=== PATIENT | female | born 1990 | race Caucasian/White ===

== ENCOUNTER 2017-08-08 23:58 | Emergency (ER) | payer MEDICAID ==
[2017-08-09 00:50] VITALS: BP 117/67
[2017-08-09 01:37] LABS: BILIRUBIN,URINE NEGATIVE (NEGATIVE); COLOR,URINE YELLOW; GLUCOSE, URINE NEGATIVE (NEGATIVE); KETONES,URINE NEGATIVE (NEGATIVE); LEUKOCYTE ESTERASE,URINE TRACE (NEGATIVE); NITRITE,URINE NEGATIVE (NEGATIVE); PROTEIN,URINE NEGATIVE (NEGATIVE); URINE SPECIFIC GRAVITY 1.024; UROBILINOGEN,URINE NEGATIVE mg/dL (<2.0)
[2017-08-09 01:39] LABS: APPEARANCE,URINE HAZY
== END 2017-08-09 04:04 | disposition left against medical advice (07) ==
LOC: ER 23:58
DX: Z53.21 Procedure and treatment not carried out due to patient leaving prior to being seen by health care provider (principal)
CPT/HCPCS: 81001

== ENCOUNTER 2018-01-21 23:08 | Inpatient (IN) | payer MEDICAID ==
[2018-01-21] MEDS ORDERED: RINGERS SOLUTION,LACTATED 1,000 ML IV ONE (23:51)
[2018-01-21] MEDS ORDERED: PENICILLIN G-K 5 MILLION UNIT VIAL ONE (23:51)
[2018-01-21] MEDS ORDERED: PENICILLIN G POTASSIUM 5,000,000 UNIT in DEXTROSE 5%-WATER 100 ML IV ONE (23:51)
[2018-01-22 00:11] LABS: APPEARANCE,URINE CLEAR; BILIRUBIN,URINE NEGATIVE (NEGATIVE); COLOR,URINE STRAW; GLUCOSE, URINE NEGATIVE (NEGATIVE); KETONES,URINE TRACE mg/dL (NEGATIVE); LEUKOCYTE ESTERASE,URINE NEGATIVE (NEGATIVE); NITRITE,URINE NEGATIVE (NEGATIVE); PROTEIN,URINE NEGATIVE (NEGATIVE); URINE SPECIFIC GRAVITY 1.006; UROBILINOGEN,URINE NEGATIVE mg/dL (<2.0)
[2018-01-22] MEDS ORDERED: OXYTOCIN/NORMAL SALINE 20 UNIT/1,000 ML RTUINJ ONE (00:11)
[2018-01-22] MEDS ORDERED: LIDOCAINE 1% INJ-PF (10 MG/ML) 30 ML SDV ONE (00:11)
[2018-01-22] MEDS ORDERED: MISOPROSTOL 0.2 MG TABLET ONE (00:11)
[2018-01-22 00:29] LABS: URINE AMPHETAMINES SCREEN NEGATIVE; URINE BARBITURATES SCREEN NEGATIVE; URINE BENZODIAZEPINES SCREEN NEGATIVE; URINE COCAINE SCREEN NEGATIVE; URINE MARIJUANA (THC) SCREEN NEGATIVE; URINE METHADONE SCREEN NEGATIVE; URINE PHENCYCLIDINE SCREEN NEGATIVE
[2018-01-22 00:30] LABS: ABSOLUTE BASOPHILS # (AUTO) 0.1 10^3/uL (0.0-0.2); ABSOLUTE EOSINOPHILS # (AUTO) 0.2 10^3/uL (0.0-0.6); ABSOLUTE LYMPHOCYTES (AUTO) 3.3 10^3/uL (0.5-4.7); ABSOLUTE MONOCYTES (AUTO) 0.9 10^3/uL (0.1-1.4); ABSOLUTE NEUT (AUTO) 9.2 10^3/uL (1.7-8.2); BASOPHILS % (AUTO) 0.4 % (0-2); EOSINOPHILS % (AUTO) 1.8 % (0-6); HEMATOCRIT 30.1 % (36.0-47.0); HEMOGLOBIN 10.1 g/dL (12.0-15.5); LYMPHOCYTES % (AUTO) 24.2 % (13-45); MEAN CORPUSCULAR HEMOGLOBIN 28.4 pg (27.0-33.4); MEAN CORPUSCULAR HGB CONC 33.7 g/dL (32.0-36.0); MEAN CORPUSCULAR VOLUME 84 fl (80-97); MONOCYTES % (AUTO) 6.6 % (3-13); PLATELET COUNT 391 10^3/uL (150-450); RED BLOOD COUNT 3.57 10^6/uL (3.72-5.28); TOTAL CELLS COUNTED % (AUTO) 100 %; WHITE BLOOD COUNT 13.8 10^3/uL (4.0-10.5)
--- NOTE | 2018-01-22 00:38 | Admission Physical ---
Datetime Report Generated by CPN: 01/22/2018 00:38 CURRENT ADMISSION Chief Complaint: Uterine Contractions; Suspected Ruptured Membranes Chief Complaint Other: contractions starting today. possible rupture of membranes since yesterday Indication for Induction: Not Applicable Admit Impression : , Intrauterine ; Active Labor; Ruptured Membranes Admit Plan: Admit to Unit; Initiate Labor Protocol Admit Plan- Other: gbs unknown anticipated - precipitous labor ALLERGIES Medication Allergies: No Medication Allergies: No Known Allergies (08/09/2017) Latex: No Latex Allergies Food Allergies: denies Environmental Allergies: denies OBSTETRICAL HISTORY EDC: 02/24/2018 00:00 : 2 Para: 1 Term: 1 : 0 SAB: 0 IAB: 0 Livin Gestational Diabetes: No Rh Sensitization: No Incompetent Cervix: No VIN: No Infertility: No ART Treatment: No Uterine Anomaly: No IUGR: Yes Hx Previous C/S: No Macrosomia: No Hx Loss/Stillborn: No PIH: No Hx : No Placenta Previa/Abruption: No Depression/PP Depression: Yes PTL/PROM: Yes Post Hemorrhage: No Current Procedures: Ultrasound Obstetrical History Comments: g1 - 02/27/14 at 38.1 IUGR <7% Female 5lb 2 oz g2 - SEE RECORDS Alcohol: No Marijuana : No Cocaine: No Other Illicit Drugs: No Cigarettes: Current Everyday Smoker. 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 Surgery: No Heart Disease: No Hosp/Surgery: Yes Autoimmune Disorder: No Anesthetic Complications: No Kidney Disease: No Abnormal Pap Smear: No Neuro/Epilepsy: No Psychiatric Disorders: No Other Medical Diseases: No Hepatitis/Liver Disease: No Significant Family History: No Varicosities/Phlebitis: No Trauma/Violence : No Thyroid Dysfunction: No Medical History Comments: childbirth x 1, smoker, depression on zoloft but has not been taking medications INFECTIOUS HISTORY Gonorrhea: No Genital Herpes: No Chlamydia: No Tuberculosis: No Syphilis: No Hepatitis: No HIV/AIDS Exposure: No Rash or Viral Illness: No HPV: No PHYSICAL EXAM General: Normal HEENT: Normal Neurologic: Normal Thyroid: Normal Heart: Normal Lungs: Normal Breast: Normal Back: Normal Abdomen: Normal Genitourinary Exam: Normal Extremities: Normal DTRs: Normal Pelvic Type: Adequate Vital Signs: Reviewed; Within Normal Limits VAGINAL EXAM Dilatation: 10 Effacement: 100 Station: 2 Contraction Comments: q2 minutes MEMBRANES Pooling: Positive Membranes: Ruptured Amniotic Fluid Color: Clear FETUS A EGA: 35.2 Monitoring: External US FHR- Baseline: 130 Variability: Moderate 6-25bpm Accelerations: 15X15 Decelerations: Early; Late; Variable Estimated Weight (gm): 2800 Presentation: Vertex Admit Comment: admit labor and delivery anticipated PLANS FOR LABOR AND DELIVERY Labor and Delivery: None Pain Management: Epidural Feeding Preference: Both Benefit of Breast Feed Discussed: Yes Circumcision: N/A INFORMED CONSENT Signature: with User ID: [email or web address]
[2018-01-22] MEDS ORDERED: IBUPROFEN 800 MG TABLET ONE (00:42)
[2018-01-22] MEDS ORDERED: DIPH/PERTUSS(ACELL)/TETANUS VAC/PF 0.5 ML SYR (>=10YO) IM PRN (00:45)
[2018-01-22] MEDS ORDERED: NA PHOS,M-B/NA PHOS,DI-BA (ADULT) 133 ML ENEMA PR PRN (00:45)
[2018-01-22] MEDS ORDERED: ACETAMINOPHEN WITH CODEINE #3 TABLET PO PRN ×2 (00:45)
[2018-01-22] MEDS ORDERED: OXYTOCIN/NORMAL SALINE 20 UNIT/1,000 ML RTUINJ IV PRN (00:45)
[2018-01-22] MEDS ORDERED: PSEUDOEPHEDRINE HCL 30 MG TABLET PO PRN (00:45)
[2018-01-22] MEDS ORDERED: PROMETHAZINE HCL 25 MG TABLET PO PRN (00:45)
[2018-01-22] MEDS ORDERED: PROMETHAZINE HCL 25 MG SUPP.RECT PR PRN (00:45)
[2018-01-22] MEDS ORDERED: ACETAMINOPHEN 650 MG SUPP.RECT PR PRN (00:45)
[2018-01-22] MEDS ORDERED: ZOLPIDEM TARTRATE 5 MG TABLET PO PRN (00:45)
[2018-01-22] MEDS ORDERED: MEASLES,MUMPS&RUBELLA VACC/PF 0.5 ML VIAL SUBCUT PRN (00:45)
[2018-01-22] MEDS ORDERED: HYDROCODONE/ACETAMINOPHEN 5-325 MG TABLET PO PRN (00:45)
[2018-01-22] MEDS ORDERED: DIBUCAINE 1% OINTMENT 28 GM TP PRN (00:45)
[2018-01-22] MEDS ORDERED: DIPHENHYDRAMINE HCL 25 MG CAPSULE PO PRN (00:45)
[2018-01-22] MEDS ORDERED: MAGNESIUM HYDROXIDE SUSP 30 ML UDCUP PO PRN (00:45)
[2018-01-22] MEDS ORDERED: BENZOCAINE/MENTHOL AEROSOL SPRAY 56 ML TOP PRN (00:45)
[2018-01-22] MEDS ORDERED: GLYCERIN/WITCH HAZEL LEAF 1 EACH MED..PAD TP PRN (00:45)
[2018-01-22] MEDS ORDERED: PROMETHAZINE HCL INJ 25 MG/1 ML VIAL IV PRN (00:45)
--- NOTE | 2018-01-22 00:51 | PDOC DELIVERY SUMMARY ---
Delivery Summary - Maternal Hx : II Hx Para: I Hx # Term Pregnancies: 1 Hx # Pregnancies: 0 Hx Total # of Abortions (Sponateous & Elective): 0 Number of Living Children: 1 BUDDY: 02/24/18 Gestational Age: 35.2 Risk Factors: Labor <37 wks - suspected rupture of membranes 24 hours prior to presentation to office. Risk Factors/Complications Other:: History of prior term vaginal delivery with intrauterine growth restriction in 2013 Ruptured Membranes: SROM - ruptured about 24 hours prior to presentation Fluids: Clear - small amount, clear. no odor. - Delivery Labor: Precipitous-Less Than 3 Hours Presentation: Vertex - Delivered a viable female . Apgars and weight pending at this time. Please see Centricity for this information. Heart Rate Monitoring: Externally Uterine Contraction Monitoring: External Pattern: Late Decels, Variable Decels Pattern Other: at time of pushing. Support Person Present: Yes Location: LD Placenta: Within Normal Limits Placenta Description: normal appearing Number of Vessels (Cord): 3 Nuchal Cord: Yes - body cord, right leg x 2, loose Delivery of Placenta Date: 01/22/18 Delivery of Placenta Time: 00:34 Estimated Blood Loss: 200 Delivery Quantitative Blood Loss (QBL): 200 - No perineal lacerations or repairs - Medications Type of Anesthesia:: Other - none. - Delivery Personnel MD: ANGIE DIAS
[2018-01-22 00:53] LABS: ARTERIAL BLOOD BASE EXCESS -2.5 mmol/L; ARTERIAL BLOOD H2CO3 2.02 mmol/L (1.05-1.35); ARTERIAL BLOOD HCO3 26.9 mmol/L (20-26); ARTERIAL BLOOD PCO2 67.2 mmHg (35-45); ARTERIAL BLOOD PH 7.22 (7.35-7.45)
--- NOTE | 2018-01-22 02:31 | Delivery Summary ---
Del Sum A-C Datetime Report Generated by CPN: 01/22/2018 02:31 DELIVERY PERSONNEL DELIVERY PERSONNEL: [id number] Delivery Doctor:: Dr. Taryn Wynne Labor and Delivery Nurse:: Maura Jordan RNbobbin hauler Nurse:: Lea Eckert RN Nursery Nurse:: Dary Harrington RN Nursery Nurse:: Jenifer Marroquin RN Senior Instrumentation Engineer/DOCUMENTATION SPEC: Filomena Triplett, FAMILY PHYSICIAN Additional Personnel: : Julia Garsia, RN MATERNAL INFORMATION Delivery Anesthesia: None Medications After Delivery: Pitocin Bolus-Please Comment; Pitocin Drip 20 Units/1000ml NSS Meds After Delivery Comment: NS with Pitocin 20 units/liter IVF Maternal Complications: Precipitous Labor (<3hrs); Premature Rupture of Membranes; Other Complication Details: prolonged rupture of membranes, Late PNC/Limited PNC LABOR SUMMARY EDC: 02/24/2018 00:00 No. Babies in Womb: 1 Attempted: No Labor Anesthesia: None LABOR INFORMATION Reason for Induction: Not Applicable Onset of Labor: 01/21/2018 21:00 Complete Dilatation: 01/22/2018 00:26 Oxytocin: N/A Group B Beta Strep: Unknown Antibiotics # of Doses: 1 Antibiotics Time of Last Dose: 00:00 Name of Antibiotic Given: pcn Steroids Given: None Reason Steroids Not Administered: Not Applicable MEMBRANES Membranes Rupture Method: Spontaneous Rupture of Membranes: 01/20/2018 20:30 Length of Rupture (hr): 28.03 Amniotic Fluid Color: Clear Amniotic Fluid Amount: Small Amniotic Fluid Odor: Normal STAGES OF LABOR Stage 1 hr: 3 Stage 1 min: 26 Stage 2 hr: 0 Stage 2 min: 6 Stage 3 hr: 0 Stage 3 min: 2 Total Time in Labor hr: 3 Total Time in Labor min: 34 VAGINAL DELIVERY Episiotomy: None Laceration #1: None Laceration #2: None Laceration #3: None Laceration Repair: Not Applicable Sponge Count Correct: N/A Sharps Count Correct: N/A CSECTION DELIVERY Primary Indication: N/A Secondary Indication: N/A CSection Incidence: N/A Labor: N/A Elective: N/A CSection Incision: N/A BABY A INFORMATION Infant Delivery Date/Time: 01/22/2018 00:32 Method of Delivery: Vaginal Born in Route : No : N/A Forceps: N/A Vacuum Extraction: N/A Shoulder Dystocia : No PRESENTATION/POSITION BABY A Presentation: Cephalic Cephalic Presentation: Vertex Vertex Position: Right Occipital Anterior Breech Presentation: N/A PLACENTA INFORMATION BABY A Placenta Delivery Time : 01/22/2018 00:34 Placenta Method of Delivery: Spontaneous Placenta Status: Delivered SCORES BABY A Heart Rate 1 min: >100 bpm Resp Effort 1 min: Good Cry Reflex Irritability 1 min: Cough or Sneeze or Pulls Away Muscle Tone 1 min: Active Motion Color 1 min: Blue/Pale Resuscitation Effort 1 min: Tactile Stimulation SCORE 1 MIN: 8 Heart Rate 5 min: >100 bpm Resp Effort 5 min: Good Cry Reflex Irritability 5 min: Cough or Sneeze or Pulls Away Muscle Tone 5 min: Active Motion Color 5 min: Body [place], Extremities Blue Resuscitation Effort 5 min: Tactile Stimulation SCORE 5 MIN: 9 INFANT INFORMATION BABY A Gestational Age at Delivery: 35.2 Gestational Status: Late - 34- 36.6 Weeks Outcome : Liveborn Condition : Stable Infant Sex: Female IDENTIFICATION BABY A Infant Verification Date/Time: 01/22/2018 00:45 ID Band Number: [id number] Mother's Name Verified: Yes RN Verifying : Jasmina EckertPatricia SERRANO Additional Verifying Personnel: Jaron Garsia RN WEIGHT/LENGTH BABY A Birthweight (gm): 2470 Infant Weight (lb): 5 Weight (oz): 7 Length (in): 18.50 Infant Length (cm): 46.99 CORD INFORMATION BABY A No. Cord Vessels: 3 Nuchal Cord : N/A Nuchal Cord- Other: body cord, right leg x 2 Cord Blood Taken: Yes-For Eval (Mom's Blood Type - or O+) Suction: Mouth; Nose ASSESSMENT BABY A Infant Complications: None Physical Findings at Delivery: Within Normal Limits Respirations: Grunting Splitting Machine Feeder/ALS Called : Yes Infant Care By: RN Len and RN Cara Transferred To: [facility] BABY B INFORMATION : N/A SIGNATURES Signature: Electronically signed by Elyse Wynne MD ([facility]) on 01/22/2018 at 00:41 with User ID: [email or web address]
[2018-01-22] MEDS ORDERED: PENICILLIN G POTASSIUM 2,500,000 UNIT in DEXTROSE 5%-WATER 50 ML IV SCH (04:00)
[2018-01-22 04:09] LABS: CHLAM PCR NOT DETECTED (NOT DETECT); GON PCR NOT DETECTED (NOT DETECT)
[2018-01-22] MEDS ORDERED: IBUPROFEN 800 MG TABLET PO SCH (06:00)
[2018-01-22] MEDS: IBUPROFEN 800 MG TABLET PO SCH ×2 (09:14→17:42)
[2018-01-22] MEDS: FERROUS SULFATE 325 MG TABLET PO SCH ×2 (09:14→17:42)
[2018-01-22] MEDS: FAMOTIDINE 20 MG TABLET PO SCH ×2 (09:15→22:45)
[2018-01-22] MEDS: PRENATAL VITAMIN W DHA CAPSULE PO SCH (09:15)
[2018-01-22] MEDS: DOCUSATE SODIUM 100 MG CAPSULE PO SCH ×2 (09:15→17:42)
[2018-01-22] MEDS: SENNOSIDES/DOCUSATE 8.6-50 MG 1 EACH TABLET PO SCH (09:15)
[2018-01-23] MEDS: IBUPROFEN 800 MG TABLET PO SCH ×3 (01:03→17:49)
[2018-01-23 07:45] LABS: HEMATOCRIT 31.1 % (36.0-47.0); HEMOGLOBIN 10.5 g/dL (12.0-15.5); MEAN CORPUSCULAR HGB CONC 33.9 g/dL (32.0-36.0); MEAN CORPUSCULAR VOLUME 86 fl (80-97); PLATELET COUNT 378 10^3/uL (150-450); RED BLOOD COUNT 3.63 10^6/uL (3.72-5.28); RED CELL DISTRIBUTION WIDTH 13.3 % (11.5-14.0); WHITE BLOOD COUNT 11.2 10^3/uL (4.0-10.5)
[2018-01-23] MEDS: FAMOTIDINE 20 MG TABLET PO SCH ×2 (09:49→22:01)
[2018-01-23] MEDS: PRENATAL VITAMIN W DHA CAPSULE PO SCH (09:50)
[2018-01-23] MEDS: DOCUSATE SODIUM 100 MG CAPSULE PO SCH ×2 (09:50→17:49)
[2018-01-23] MEDS: FERROUS SULFATE 325 MG TABLET PO SCH ×2 (09:50→17:49)
[2018-01-23] MEDS: SENNOSIDES/DOCUSATE 8.6-50 MG 1 EACH TABLET PO SCH (09:51)
--- NOTE | 2018-01-23 13:49 | PDOC PROGRESS REPORT ---
Subjective-OB Progress Note for:: 01/23/18 Subjective: 27yo G2 now P2 s/p ppd1. Ambulating and voiding without difficulty. Pain well controlled with motrin. No concerns. Physical Exam (OB) Vital Signs: Temp Pulse Resp BP Pulse Ox 98.0 F 67 18 102/67 99 01/23/18 07:29 01/23/18 07:29 01/23/18 07:29 01/23/18 07:29 01/23/18 07:29 Intake & Output 01/22/18 01/23/18 01/24/18 06:59 06:59 06:59 Intake Total 2200 Balance 2200 Weight 84.1 kg - General General Appearance: Appears well In distress: None - PIH/Pre-Eclampsia DTR's: 2 + Clonus: Negative Headache: Absent Epigastric Pain: No Visual Changes: No - Episiotomy/Laceration Site Condition: N/A - Lochia Lochia Amount: Small 10-25 ml Lochia Color: Rubra/Red - Abdomen Description: Soft, Flat Hernia Present: No Fundal Description: Firm Fundal Height: u/u - u/2 - Respiratory Respiratory Status: No respiratory distress - Extremities Upper extremity: Normal inspection Lower extremities: Normal inspection - Neurological Orientation: AAOx4 - Psychological Associated symptoms: Normal affect, Normal mood Objective-Diagnostic Laboratory: 01/23/18 07:21 01/23/18 07:21 WBC 11.2 H RBC 3.63 L Hgb 10.5 L Hct 31.1 L MCV 86 MCH 29.0 MCHC 33.9 RDW 13.3 Plt Count 378 Assessment and Plan(PN) - Assessment and Plan (1) Anemia complicating , third trimester Is this a current diagnosis for this admission?: Yes Plan: Increase dietary iron and feso4 bid. (2) Current every day smoker Is this a current diagnosis for this admission?: Yes Plan: cessation encouraged (3) Vaginal delivery Is this a current diagnosis for this admission?: Yes Plan: Routine pp care (4) delivery Is this a current diagnosis for this admission?: Yes Plan: Routine pp care (5) Limited care Qualifiers: Trimester: unspecified trimester Qualified Code(s): O09.30 - Supervision of with insufficient care, unspecified trimester Is this a current diagnosis for this admission?: Yes Plan: delivered. traffic and transport planner - Time Spent with Patient Time with patient: Less than 15 minutes Smoking Education Provided: Over 3 minutes Medications reviewed and adjusted accordingly: Yes - Disposition Anticipated Discharge: Home Within: within 24 hours
[2018-01-24] MEDS: IBUPROFEN 800 MG TABLET PO SCH ×2 (02:31→10:58)
--- NOTE | 2018-01-24 09:08 | PDOC DISCHARGE SUMMARY ---
Final Diagnosis Discharge Date: 01/24/18 - Final Diagnosis (1) Anemia complicating , third trimester Is this a current diagnosis for this admission?: Yes (2) Current every day smoker Is this a current diagnosis for this admission?: Yes (3) Limited care Is this a current diagnosis for this admission?: Yes (4) Vaginal delivery Is this a current diagnosis for this admission?: Yes Discharge Data - Discharge Medication Home Medications: Prenat 115/Iron Fum/Folic/Dss [ 19 Tablet] 1 tab PO DAILY 02/27/14 Reason(s) for Admission: Onset of Labor, Induction of Labor Intrapartum Procedure(s): Spontaneous Vaginal Delivery - Diagnosis Test Laboratory: Temp Pulse Resp BP Pulse Ox 98.4 F 65 16 112/64 98 01/23/18 20:13 01/23/18 20:13 01/23/18 20:13 01/23/18 20:13 01/23/18 20:13 01/21/18 01/22/18 01/23/18 23:20 00:16 07:21 RBC 3.57 L 3.63 L Hgb 10.1 L 10.5 L Hct 30.1 L 31.1 L Urine Opiates Screen NEGATIVE - Discharge information/Instructions Discharge Activity: Activity As Tolerated, Balance Activity w/Rest, No Lifting Over 10 Pounds, No Lifting/Push/Pulling, Pelvic Rest, No tub bath Discharge Diet: As Tolerated Disposition: HOME, SELF-CARE Follow up with: [facility] in: 4
[2018-01-24] MEDS: SENNOSIDES/DOCUSATE 8.6-50 MG 1 EACH TABLET PO SCH (10:58)
[2018-01-24] MEDS: DOCUSATE SODIUM 100 MG CAPSULE PO SCH (10:58)
[2018-01-24] MEDS: PRENATAL VITAMIN W DHA CAPSULE PO SCH (10:58)
[2018-01-24] MEDS: FERROUS SULFATE 325 MG TABLET PO SCH (10:58)
[2018-01-24] MEDS: FAMOTIDINE 20 MG TABLET PO SCH (10:58)
[2018-01-24 11:26] VITALS: BP 105/73
== END 2018-01-24 17:35 | disposition home or self-care (01) | DRG 775 ==
LOC: LC 23:08 → LR 01-22 00:14 → 2S 01-22 03:05
PROVIDERS: ADMIT Obstetrics & Gynecology; ATTEND Obstetrics & Gynecology
PROC: 10E0XZZ Delivery of Products of Conception, External Approach (ICD-10-PCS; principal; 2018-01-22)
PROC: 4A1HXCZ Monitoring of Products of Conception, Cardiac Rate, External Approach (ICD-10-PCS; 2018-01-22)
DX: O60.14X0 Preterm labor third trimester with preterm delivery third trimester, not applicable or unspecified (principal); O99.333 Smoking (tobacco) complicating pregnancy, third trimester; O69.81X0 Labor and delivery complicated by cord around neck, without compression, not applicable or unspecified; O99.334 Smoking (tobacco) complicating childbirth; F17.210 Nicotine dependence, cigarettes, uncomplicated; O76 Abnormality in fetal heart rate and rhythm complicating labor and delivery; O62.3 Precipitate labor; O42.913 Preterm premature rupture of membranes, unspecified as to length of time between rupture and onset of labor, third trimester; O99.02 Anemia complicating childbirth; D50.9 Iron deficiency anemia, unspecified; O99.344 Other mental disorders complicating childbirth; F32.9 Major depressive disorder, single episode, unspecified; Z3A.35 35 weeks gestation of pregnancy; Z37.0 Single live birth
CPT/HCPCS: 36415; 59025; 80307; 81001; 82803; 85025; 85027; 86592; 86850; 86900; 86901; 87491; 87591; 88307; J2540; J2590; J3490; Q0114